=== PATIENT | female | born 1950 | race Caucasian/White ===

== ENCOUNTER 2023-02-21 12:08 | Emergency (ER) | payer MEDICARE, OTHER, SELFPAY ==
[2023-02-21] VITALS (30 sets, daily range): BP systolic 81–141; BP diastolic 46–83; PULSE 69–86; RESP 11–28; TEMP 36.1; O2SAT 93–100
--- NOTE | 2023-02-21 12:43 | ED.GENADULT ---
HPI - General Adult General Time Seen by Provider: 13:09 <Amarilis Ratliff MD - Last Filed: 02/21/23 16:47> Date Seen: 02/21/23 <Amarilis Ratliff MD - Last Filed: 02/21/23 16:47> Chief complaint: Nausea/Vomiting <Oleg Francois MD - Last Filed: 03/04/23 11:45> Stated complaint: Vomiting, diarrhea, R leg pain <Oleg Francois MD - Last Filed: 03/04/23 11:45> Time Seen by Provider: 02/21/23 12:41 <Oleg Francois MD - Last Filed: 03/04/23 11:45> Source: patient and RN notes reviewed <Amarilis Ratliff MD - Last Filed: 02/21/23 16:47> History of Present Illness HPI narrative: pt here with nausea, vomiting since this am after breakfast, has since developed chest pain and SOB, right leg pain 72-year-old woman presenting to the emergency department <Oleg Francois MD - Last Filed: 03/04/23 11:45> pt here with nausea, vomiting since this am after breakfast, has since developed chest pain and SOB, right leg pain 72-year-old woman presenting to the emergency department with her daughter with concern of nausea/vomiting with abdominal pain (?epigastric area) since eating breakfast this am. Also complaining of severe right leg pain, complains she hurts everywhere. C/o chest pain and shortness of breath after arrival. I was not signed up for this patient but nursing staff asked for immediate assistance and the physician whom was going to see her was busy. I did step in to see her emergently. Note nursing staff did not trust initial BP as patient was moving about, uncomfortable. No noted fevers. She states that she is seeing yellow right now. Review of her chart shows that she has had cholecystectomy, hysterectomy, appendectomy, prior tubal with ovary removal. <Amarilis Ratliff MD - Last Filed: 02/21/23 16:47> Related Data Home medications: Home Medications Medication Instructions Recorded Confirmed betamethasone dipropionate 0.05 % topical BID 02/21/23 topical ointment celecoxib 200 mg capsule 200 mg PO 3XD 02/21/23 02/21/23 cyclobenzaprine 10 mg tablet 10 mg PO QPM PRN muscle spasm 02/21/23 02/21/23 desvenlafaxine succinate 50 mg 50 mg PO DAILY 02/21/23 02/21/23 tablet,extended release 24 hr pantoprazole 40 mg tablet,delayed 40 mg PO DAILY 02/21/23 02/21/23 release topiramate 25 mg tablet 25 mg PO BID 02/21/23 02/21/23 trazodone 50 mg tablet 25 - 50 mg PO QPM 02/21/23 02/21/23 <Oleg Francois MD - Last Filed: 03/04/23 11:45> Allergies/adverse reactions: Allergies Allergy/AdvReac Type Severity Reaction Status Date / Time alfalfa Allergy Verified 02/21/23 12:53 bupropion [From Wellbutrin] Allergy Verified 02/21/23 12:53 citalopram [From Celexa] Allergy Verified 02/21/23 12:53 lamotrigine [From Lamictal] Allergy Verified 02/21/23 12:53 niacin Allergy Verified 02/21/23 12:53 paroxetine [From Paxil] Allergy Verified 02/21/23 12:53 <Oleg Francois MD - Last Filed: 03/04/23 11:45> [facility] Surgical History: Surgical History (Updated 01/01/22 @ 15:19 by Apple Murrieta ~ RN, RN) History of total left hip replacement ?Z96.642 - Presence of left artificial hip joint (ICD-10) <Oleg Francois MD - Last Filed: 03/04/23 11:45> Social History: Social History Smoking Status: Unknown if ever smoked How often do you have a drink containing alcohol: never How often do you have six or more drinks on one occasion: Never AUDIT-C Alcohol total score: 0 Non-prescribed substance use: denies use <Oleg Francois MD - Last Filed: 03/04/23 11:45> Exam Const: Vital Signs, click to edit/add: Vital Signs - 24 hr 02/21/23 12:41 02/21/23 12:59 02/21/23 13:22 Temperature 96.9 F L Pulse Rate 71 Pulse Rate [Right Pulse Oximeter] 76 Respiratory Rate 24 28 H Blood Pressure Blood Pressure [Ri ght Upper Arm] 81/50 L Pulse Oximetry 98 97 100 Oxygen Delivery Me thod Room Air 02/21/23 13:26 02/21/23 13:30 02/21/23 13:31 Temperature Pulse Rate 82 73 69 Pulse Rate [Right Pulse Oximeter] Respiratory Rate 23 27 H 23 Blood Pressure 141/67 H 135/56 L Blood Pressure [Ri ght Upper Arm] Pulse Oximetry 100 98 100 Oxygen Delivery Me thod 02/21/23 13:41 02/21/23 13:45 02/21/23 14:08 Temperature Pulse Rate 75 80 74 Pulse Rate [Right Pulse Oximeter] Respiratory Rate 20 14 Blood Pressure 134/74 Blood Pressure [Ri ght Upper Arm] Pulse Oximetry 98 100 98 Oxygen Delivery Me thod 02/21/23 14:09 02/21/23 14:10 02/21/23 14:12 Temperature Pulse Rate 80 80 82 Pulse Rate [Right Pulse Oximeter] Respiratory Rate 13 13 14 Blood Pressure 136/62 130/71 Blood Pressure [Ri ght Upper Arm] Pulse Oximetry 98 96 95 Oxygen Delivery Me thod 02/21/23 14:15 02/21/23 14:30 02/21/23 14:31 Temperature Pulse Rate 80 85 80 Pulse Rate [Right Pulse Oximeter] Respiratory Rate 11 L 16 13 Blood Pressure 133/64 Blood Pressure [Ri ght Upper Arm] Pulse Oximetry 95 98 96 Oxygen Delivery Me thod 02/21/23 14:32 02/21/23 14:45 02/21/23 15:00 Temperature Pulse Rate 82 86 82 Pulse Rate [Right Pulse Oximeter] Respiratory Rate 18 20 24 Blood Pressure Blood Pressure [Ri ght Upper Arm] Pulse Oximetry 96 96 93 Oxygen Delivery Me thod 02/21/23 15:01 02/21/23 15:15 Temperature Pulse Rate 83 81 Pulse Rate [Right Pulse Oximeter] Respiratory Rate 26 H 18 Blood Pressure 136/83 Blood Pressure [Ri ght Upper Arm] Pulse Oximetry 93 96 Oxygen Delivery Me thod <Oleg Francois MD - Last Filed: 03/04/23 11:45> Vital Signs, click to edit/add: Vital Signs - 24 hr 02/21/23 12:41 02/21/23 12:59 02/21/23 13:22 Temperature 96.9 F L Pulse Rate 71 Pulse Rate [Right Pulse Oximeter] 76 Respiratory Rate 24 28 H Blood Pressure Blood Pressure [Ri ght Upper Arm] 81/50 L Pulse Oximetry 98 97 100 Oxygen Delivery Me thod Room Air 02/21/23 13:26 02/21/23 13:30 02/21/23 13:31 Temperature Pulse Rate 82 73 69 Pulse Rate [Right Pulse Oximeter] Respiratory Rate 23 27 H 23 Blood Pressure 141/67 H 135/56 L Blood Pressure [Ri ght Upper Arm] Pulse Oximetry 100 98 100 Oxygen Delivery Me thod 02/21/23 13:41 02/21/23 13:45 02/21/23 14:08 Temperature Pulse Rate 75 80 74 Pulse Rate [Right Pulse Oximeter] Respiratory Rate 20 14 Blood Pressure 134/74 Blood Pressure [Ri ght Upper Arm] Pulse Oximetry 98 100 98 Oxygen Delivery Me thod 02/21/23 14:09 02/21/23 14:10 02/21/23 14:12 Temperature Pulse Rate 80 80 82 Pulse Rate [Right Pulse Oximeter] Respiratory Rate 13 13 14 Blood Pressure 136/62 130/71 Blood Pressure [Ri ght Upper Arm] Pulse Oximetry 98 96 95 Oxygen Delivery Me thod 02/21/23 14:15 02/21/23 14:30 02/21/23 14:31 Temperature Pulse Rate 80 85 80 Pulse Rate [Right Pulse Oximeter] Respiratory Rate 11 L 16 13 Blood Pressure 133/64 Blood Pressure [Ri ght Upper Arm] Pulse Oximetry 95 98 96 Oxygen Delivery Me thod 02/21/23 14:32 02/21/23 14:45 02/21/23 15:00 Temperature Pulse Rate 82 86 82 Pulse Rate [Right Pulse Oximeter] Respiratory Rate 18 20 24 Blood Pressure Blood Pressure [Ri ght Upper Arm] Pulse Oximetry 96 96 93 Oxygen Delivery Me thod 02/21/23 15:01 02/21/23 15:15 Temperature Pulse Rate 83 81 Pulse Rate [Right Pulse Oximeter] Respiratory Rate 26 H 18 Blood Pressure 136/83 Blood Pressure [Ri ght Upper Arm] Pulse Oximetry 93 96 Oxygen Delivery Me thod <Amarilis Ratliff MD - Last Filed: 02/21/23 16:47> Course Course Hospital Course: Patient was seen emergently at the request of staff. She was presenting with nausea vomiting, complaint of right leg pain and pain everywhere, progressed into symptoms of altered mentation where she was speaking gibberish and seeming like she was talking to someone. She would lapse and normal speech with me. Differential is vast including neurologic, cardiac, respiratory including but not limited to thromboembolic disease, metabolic, infectious, toxidromes. This patient will be watched quite closely, will work to try to elucidate potential etiologies. <Oleg Francois MD - Last Filed: 03/04/23 11:45> Reevaluation(s) Time of Reevaluation #1: 13:25 <Amarilis Ratliff MD - Last Filed: 02/21/23 16:47> Reevaluation #1: Staff paged code blue due to patient status change. She reportedly tensed up, seemed to be hallucinating. On my immediate arrival, she is alert but eyes closed, intermittently seems to be talking non-sensically, almost as if she is talking to someone there, she states that she cannot understand a word she is saying. Keeps saying that they need to go somewhere to her daughter. Eventually tells me to just make her sleep, she will be fine. BP 130-150's. Nursing staff had not given the morphine, will hold on this for the moment as she is seemingly altered. ?encephalopathic. Adding in toxicology, covid testing. May need head CT when stable to do so. Attempted to look at aorta with US, could not see any evidence of any gross dilated vascular structure but admittedly could not see into the retroperitoneal area well at all. Through this, patient is able to tell me that she is not aware of anyone with aneurysms in the family. <Amarilis Ratliff MD - Last Filed: 02/21/23 16:47> Time of Reevaluation #2: 13:44 <Amarilis Ratliff MD - Last Filed: 02/21/23 16:47> Reevaluation #2: Nursing staff feels that patient is stable enough mentally to proceed with imaging. She reports that her mom has had very atypical reactions to medications, including hallucinations. Will proceed with noncontrast head and abdominal imaging more emergently. Understand that we may need to proceed with looking at vascular imaging but feel this patient presentation is peculiar enough and perplexing that we need to proceed. Most labs not back yet. <Amarilis Ratliff MD - Last Filed: 02/21/23 16:47> Time of Reevaluation #3: 15:13 <Amarilis Ratliff MD - Last Filed: 02/21/23 16:47> Reevaluation #3: Patient seems like a completely different person, she states she feels better if she can throw up air. The abdominal pain is coming back a little bit. Reviewed that head CT noncontrast as well as abdominal CT are not showing any acute pathology. D-dimer is mildly elevated in thus will send her back over for chest CT PE protocol and subsequent abdomen with IV contrast. We unfortunately have issues with lipase not being able to be done here. Thus I do feel we really need to have an adequate look at her pancreas amongst other things. She did not ever get pain management here just the Zofran. She told me at this time that her younger sister from esophageal cancer last year. I did try to reassure her that I doubt that this would be a presentation of esophageal cancer. She and her notes that they have had no travel, no no definite ill contacts. They are outside a lot but she had not felt ill prior to today. <Amarilis Ratliff MD - Last Filed: 02/21/23 16:47> Additional Reevaluation(s): 1642 p.m. patient is feeling better. On further discussion with patient she thinks she may actually have Zofran or different antiemetic at home. She reports for years that she will have this episodically with significant nausea and vomiting. She denies any food that might be suspect for food poisoning. She had 2 cups of coffee this morning, would usually drink more. She had shredded wheat with 2% milk which she has had a couple times this week already without any problem. The only concerning abnormality is microscopic hematuria, she is aware we will be doing a urine culture but doubt infection. If this microscopic hematuria is still present on a follow-up urinalysis in clinic, would recommend consideration for urology referral for cystoscopy and further evaluation. I have no etiology for her nausea vomiting. If this continues to be problematic, consideration for Gastroenterology referral is recommended. She is had no concerning tachycardia hypertension or hyperthermia here. She has no ocular clonus, no muscular clonus no hyperreflexia. <Amarilis Ratliff MD - Last Filed: 02/21/23 16:47> Vital Signs Vital signs: Initial Vital Signs Temperature 96.9 F L 02/21/23 12:41 Temperature Source Temporal Artery Scan 02/21/23 12:41 Pulse Rate 76 02/21/23 12:41 Respiratory Rate 24 02/21/23 12:41 Blood Pressure 81/50 L 02/21/23 12:41 Blood Pressure Mean 60 L 02/21/23 12:41 Blood Pressure Position Sitting 02/21/23 12:41 Pulse Oximetry 98 02/21/23 12:41 Oxygen Delivery Method Room Air 02/21/23 12:41 Vital Signs Temperature 96.9 F L 02/21/23 12:41 Pulse Rate 76 02/21/23 12:41 Respiratory Rate 24 02/21/23 12:41 Blood Pressure 81/50 L 02/21/23 12:41 Pulse Oximetry 98 02/21/23 12:41 Oxygen Delivery Method Room Air 02/21/23 12:41 Temperature 96.9 F L 02/21/23 12:41 Pulse Rate 76 02/21/23 17:01 Respiratory Rate 18 02/21/23 16:01 Blood Pressure 108/46 L 02/21/23 17:01 Pulse Oximetry 93 02/21/23 17:01 Oxygen Delivery Method Room Air 02/21/23 12:41 <Oleg Francois MD - Last Filed: 03/04/23 11:45> Initial Vital Signs Temperature 96.9 F L 02/21/23 12:41 Temperature Source Temporal Artery Scan 02/21/23 12:41 Pulse Rate 76 02/21/23 12:41 Respiratory Rate 24 02/21/23 12:41 Blood Pressure 81/50 L 02/21/23 12:41 Blood Pressure Mean 60 L 02/21/23 12:41 Blood Pressure Position Sitting 02/21/23 12:41 Pulse Oximetry 98 02/21/23 12:41 Oxygen Delivery Method Room Air 02/21/23 12:41 Vital Signs Temperature 96.9 F L 02/21/23 12:41 Pulse Rate 76 02/21/23 12:41 Respiratory Rate 24 02/21/23 12:41 Blood Pressure 81/50 L 02/21/23 12:41 Pulse Oximetry 98 02/21/23 12:41 Oxygen Delivery Method Room Air 02/21/23 12:41 Temperature 96.9 F L 02/21/23 12:41 Pulse Rate 76 02/21/23 17:01 Respiratory Rate 18 02/21/23 16:01 Blood Pressure 108/46 L 02/21/23 17:01 Pulse Oximetry 93 02/21/23 17:01 Oxygen Delivery Method Room Air 02/21/23 12:41 <Amarilis Ratliff MD - Last Filed: 02/21/23 16:47> Medical Decision Making Lab Data Lab results reviewed: Yes I reviewed the patient's lab results <Amarilis Ratliff MD - Last Filed: 02/21/23 16:47> Labs: Lab Results 02/21/23 02/21/23 02/21/23 Range/Units 12:45 13:17 13:36 WBC 8.60 (4.50-11.00) K/uL RBC 5.11 (4.00-5.20) m/uL Hgb 14.6 (12.0-16.0) gm/dL Hct 44.5 (33.0-51.0) % MCV 87 (80-100) fL MCH 29 (26-34) pg MCHC 33 (32-36) gm/dL RDW Coeff of [place] 12.3 (11.5-15.5) % Plt Count 301 (140-440) K/uL Neut % (Auto) 85.0 H (42.0-72.0) % Lymph % (Auto) 6.5 L (20-44) % [place] % (Auto) 7.1 (0.0-11.0) % Eos % (Auto) 1.0 (0.0-7.0) % Baso % (Auto) 0.2 (0.0-3.0) % Neut # (Auto) 7.30 H (1.7-7.0) K/uL Lymph # (Auto) 0.60 L (0.90-2.90) K/uL [place] # (Auto) 0.60 (0.00-0.90) K/UL Eos # (Auto) 0.09 (0.00-0.50) K/uL Baso # (Auto) 0.02 (0.00-0.30) K/uL Abs Immat Gran (auto) 0.02 (0.00-0.30) K/uL Imm/Tot Granulo (auto) 0.2 % ESR 5 (2-20) mm/hr D-Dimer Quant (PE/DVT) 0.90 H (0.00-0.50) ug/ml VBG pH 7.463 H (7.32-7.43) VBG pCO2 33 L (40-50) mmHG VBG pO2 31.1 (25-47) mmHG VBG HCO3 24 (21-28) mmol/L Sodium 141 (135-149) mmol/L Potassium 3.9 (3.6-5.1) mmol/L Chloride 108 (96-114) mmol/L Carbon Dioxide 23 (20-32) mmol/L Anion Gap 10 (7-15) mEq/L BUN 25 (7-30) mg/dL Creatinine 0.9 (0.5-1.5) mg/dL Estimated GFR 68 ml/min Glucose 155 H (60-115) mg/dL Lactate 2.5 H (0.5-1.9) mmol/L Calcium 10.0 (8.4-10.6) mg/dL Total Bilirubin 0.6 (0.1-1.5) mg/dL Direct Bilirubin 0.1 (0.0-0.5) mg/dL AST 39 H (12-35) U/L ALT 39 H (4-35) U/L Alkaline Phosphatase 98 (40-150) U/L C-Reactive Protein 0.6 (0.5-1.0) mg/dL NT-Pro-B Natriuret Pep 192 pg/mL Total Protein 7.8 (6.0-8.3) g/dL Albumin 4.6 (3.3-5.0) g/dL Lipase 49 (23-300) U/L Procalcitonin 0.06 (<0.50) ng/mL Urine Color (Yellow) Urine Appearance (Clear) Urine pH (5.0-8.5) Ur Specific [place] (1.000-1.030) Urine Protein (Negative) Urine Glucose (UA) (Negative) Urine Ketones (Negative) Urine Blood (Negative) Urine Nitrite (Negative) Urine Bilirubin (Negative) Urine Urobilinogen (0.2-1.0) Ur Leukocyte Esterase (Negative) Urine RBC (0-2) Urine WBC (0-5) Ur Squamous Epith Cells (None-Few) Urine Bacteria (None) Urine Opiates Screen (Negative) Ur Oxycodone Screen (Negative) Urine Methadone Screen (Negative) Ur Propoxyphene Screen (Negative) Ur Barbiturates Screen (Negative) U Tricyclic Antidepress (Negative) Ur Phencyclidine Scrn (Negative) Ur Amphetamines Screen (Negative) U Methamphetamines Scrn (Negative) U Benzodiazepines Scrn (Negative) Urine Cocaine Screen (Negative) U Marijuana (THC) Screen (Negative) Ur Drug Screen Comment Ethyl Alcohol < 0.01 L (0.01-0.03) % SARS-CoV-2 (PCR) Negative SARS-CoV-2 (Negative) Influenza Type A (PCR) Negative PCR FLU A (Negative) Influenza Type B (PCR) Negative PCR FLU B (Negative) RSV (PCR) Negative PCR RSV (Negative) Lab Acknowledgement Test Added POC Troponin I 0.00 L (0.01-0.04) ng/ml 02/21/23 02/21/23 Range/Units 15:45 16:10 WBC (4.50-11.00) K/uL RBC (4.00-5.20) m/uL Hgb (12.0-16.0) gm/dL Hct (33.0-51.0) % MCV (80-100) fL MCH (26-34) pg MCHC (32-36) gm/dL RDW Coeff of [place] (11.5-15.5) % Plt Count (140-440) K/uL Neut % (Auto) (42.0-72.0) % Lymph % (Auto) (20-44) % [place] % (Auto) (0.0-11.0) % Eos % (Auto) (0.0-7.0) % Baso % (Auto) (0.0-3.0) % Neut # (Auto) (1.7-7.0) K/uL Lymph # (Auto) (0.90-2.90) K/uL [place] # (Auto) (0.00-0.90) K/UL Eos # (Auto) (0.00-0.50) K/uL Baso # (Auto) (0.00-0.30) K/uL Abs Immat Gran (auto) (0.00-0.30) K/uL Imm/Tot Granulo (auto) % ESR (2-20) mm/hr D-Dimer Quant (PE/DVT) (0.00-0.50) ug/ml VBG pH (7.32-7.43) VBG pCO2 (40-50) mmHG VBG pO2 (25-47) mmHG VBG HCO3 (21-28) mmol/L Sodium (135-149) mmol/L Potassium (3.6-5.1) mmol/L Chloride (96-114) mmol/L Carbon Dioxide (20-32) mmol/L Anion Gap (7-15) mEq/L BUN (7-30) mg/dL Creatinine (0.5-1.5) mg/dL Estimated GFR ml/min Glucose (60-115) mg/dL Lactate (0.5-1.9) mmol/L Calcium (8.4-10.6) mg/dL Total Bilirubin (0.1-1.5) mg/dL Direct Bilirubin (0.0-0.5) mg/dL AST (12-35) U/L ALT (4-35) U/L Alkaline Phosphatase (40-150) U/L C-Reactive Protein (0.5-1.0) mg/dL NT-Pro-B Natriuret Pep pg/mL Total Protein (6.0-8.3) g/dL Albumin (3.3-5.0) g/dL Lipase (23-300) U/L Procalcitonin (<0.50) ng/mL Urine Color Yellow (Yellow) Urine Appearance Clear (Clear) Urine pH 7.5 (5.0-8.5) Ur Specific [place] 1.015 (1.000-1.030) Urine Protein Negative (Negative) Urine Glucose (UA) Negative (Negative) Urine Ketones Negative (Negative) Urine Blood 1+ A (Negative) Urine Nitrite Negative (Negative) Urine Bilirubin Negative (Negative) Urine Urobilinogen 0.2 (0.2-1.0) Ur Leukocyte Esterase Negative (Negative) Urine RBC 10-25 A (0-2) Urine WBC 0-2 (0-5) Ur Squamous Epith Cells Few (None-Few) Urine Bacteria None (None) Urine Opiates Screen Negative (Negative) Ur Oxycodone Screen Negative (Negative) Urine Methadone Screen Negative (Negative) Ur Propoxyphene Screen Negative (Negative) Ur Barbiturates Screen Negative (Negative) U Tricyclic Antidepress Negative (Negative) Ur Phencyclidine Scrn Negative (Negative) Ur Amphetamines Screen Negative (Negative) U Methamphetamines Scrn Negative (Negative) U Benzodiazepines Scrn Negative (Negative) Urine Cocaine Screen Negative (Negative) U Marijuana (THC) Screen Negative (Negative) Ur Drug Screen Comment See Note Ethyl Alcohol (0.01-0.03) % SARS-CoV-2 (PCR) (Negative) Influenza Type A (PCR) (Negative) Influenza Type B (PCR) (Negative) RSV (PCR) (Negative) Lab Acknowledgement POC Troponin I 0.00 L (0.01-0.04) ng/ml <Olge Francois MD - Last Filed: 03/04/23 11:45> Lab Results 02/21/23 02/21/23 02/21/23 Range/Units 12:45 13:17 13:36 WBC 8.60 (4.50-11.00) K/uL RBC 5.11 (4.00-5.20) m/uL Hgb 14.6 (12.0-16.0) gm/dL Hct 44.5 (33.0-51.0) % MCV 87 (80-100) fL MCH 29 (26-34) pg MCHC 33 (32-36) gm/dL RDW Coeff of [place] 12.3 (11.5-15.5) % Plt Count 301 (140-440) K/uL Neut % (Auto) 85.0 H (42.0-72.0) % Lymph % (Auto) 6.5 L (20-44) % [place] % (Auto) 7.1 (0.0-11.0) % Eos % (Auto) 1.0 (0.0-7.0) % Baso % (Auto) 0.2 (0.0-3.0) % Neut # (Auto) 7.30 H (1.7-7.0) K/uL Lymph # (Auto) 0.60 L (0.90-2.90) K/uL [place] # (Auto) 0.60 (0.00-0.90) K/UL Eos # (Auto) 0.09 (0.00-0.50) K/uL Baso # (Auto) 0.02 (0.00-0.30) K/uL Abs Immat Gran (auto) 0.02 (0.00-0.30) K/uL Imm/Tot Granulo (auto) 0.2 % ESR 5 (2-20) mm/hr D-Dimer Quant (PE/DVT) 0.90 H (0.00-0.50) ug/ml VBG pH 7.463 H (7.32-7.43) VBG pCO2 33 L (40-50) mmHG VBG pO2 31.1 (25-47) mmHG VBG HCO3 24 (21-28) mmol/L Sodium 141 (135-149) mmol/L Potassium 3.9 (3.6-5.1) mmol/L Chloride 108 (96-114) mmol/L Carbon Dioxide 23 (20-32) mmol/L Anion Gap 10 (7-15) mEq/L BUN 25 (7-30) mg/dL Creatinine 0.9 (0.5-1.5) mg/dL Estimated GFR 68 ml/min Glucose 155 H (60-115) mg/dL Lactate 2.5 H (0.5-1.9) mmol/L Calcium 10.0 (8.4-10.6) mg/dL Total Bilirubin 0.6 (0.1-1.5) mg/dL Direct Bilirubin 0.1 (0.0-0.5) mg/dL AST 39 H (12-35) U/L ALT 39 H (4-35) U/L Alkaline Phosphatase 98 (40-150) U/L C-Reactive Protein 0.6 (0.5-1.0) mg/dL NT-Pro-B Natriuret Pep 192 pg/mL Total Protein 7.8 (6.0-8.3) g/dL Albumin 4.6 (3.3-5.0) g/dL Lipase 49 (23-300) U/L Procalcitonin 0.06 (<0.50) ng/mL Urine Color (Yellow) Urine Appearance (Clear) Urine pH (5.0-8.5) Ur Specific [place] (1.000-1.030) Urine Protein (Negative) Urine Glucose (UA) (Negative) Urine Ketones (Negative) Urine Blood (Negative) Urine Nitrite (Negative) Urine Bilirubin (Negative) Urine Urobilinogen (0.2-1.0) Ur Leukocyte Esterase (Negative) Urine RBC (0-2) Urine WBC (0-5) Ur Squamous Epith Cells (None-Few) Urine Bacteria (None) Urine Opiates Screen (Negative) Ur Oxycodone Screen (Negative) Urine Methadone Screen (Negative) Ur Propoxyphene Screen (Negative) Ur Barbiturates Screen (Negative) U Tricyclic Antidepress (Negative) Ur Phencyclidine Scrn (Negative) Ur Amphetamines Screen (Negative) U Methamphetamines Scrn (Negative) U Benzodiazepines Scrn (Negative) Urine Cocaine Screen (Negative) U Marijuana (THC) Screen (Negative) Ur Drug Screen Comment Ethyl Alcohol < 0.01 L (0.01-0.03) % SARS-CoV-2 (PCR) Negative SARS-CoV-2 (Negative) Influenza Type A (PCR) Negative PCR FLU A (Negative) Influenza Type B (PCR) Negative PCR FLU B (Negative) RSV (PCR) Negative PCR RSV (Negative) Lab Acknowledgement Test Added POC Troponin I 0.00 L (0.01-0.04) ng/ml 02/21/23 02/21/23 Range/Units 15:45 16:10 WBC (4.50-11.00) K/uL RBC (4.00-5.20) m/uL Hgb (12.0-16.0) gm/dL Hct (33.0-51.0) % MCV (80-100) fL MCH (26-34) pg MCHC (32-36) gm/dL RDW Coeff of [place] (11.5-15.5) % Plt Count (140-440) K/uL Neut % (Auto) (42.0-72.0) % Lymph % (Auto) (20-44) % [place] % (Auto) (0.0-11.0) % Eos % (Auto) (0.0-7.0) % Baso % (Auto) (0.0-3.0) % Neut # (Auto) (1.7-7.0) K/uL Lymph # (Auto) (0.90-2.90) K/uL [place] # (Auto) (0.00-0.90) K/UL Eos # (Auto) (0.00-0.50) K/uL Baso # (Auto) (0.00-0.30) K/uL Abs Immat Gran (auto) (0.00-0.30) K/uL Imm/Tot Granulo (auto) % ESR (2-20) mm/hr D-Dimer Quant (PE/DVT) (0.00-0.50) ug/ml VBG pH (7.32-7.43) VBG pCO2 (40-50) mmHG VBG pO2 (25-47) mmHG VBG HCO3 (21-28) mmol/L Sodium (135-149) mmol/L Potassium (3.6-5.1) mmol/L Chloride (96-114) mmol/L Carbon Dioxide (20-32) mmol/L Anion Gap (7-15) mEq/L BUN (7-30) mg/dL Creatinine (0.5-1.5) mg/dL Estimated GFR ml/min Glucose (60-115) mg/dL Lactate (0.5-1.9) mmol/L Calcium (8.4-10.6) mg/dL Total Bilirubin (0.1-1.5) mg/dL Direct Bilirubin (0.0-0.5) mg/dL AST (12-35) U/L ALT (4-35) U/L Alkaline Phosphatase (40-150) U/L C-Reactive Protein (0.5-1.0) mg/dL NT-Pro-B Natriuret Pep pg/mL Total Protein (6.0-8.3) g/dL Albumin (3.3-5.0) g/dL Lipase (23-300) U/L Procalcitonin (<0.50) ng/mL Urine Color Yellow (Yellow) Urine Appearance Clear (Clear) Urine pH 7.5 (5.0-8.5) Ur Specific [place] 1.015 (1.000-1.030) Urine Protein Negative (Negative) Urine Glucose (UA) Negative (Negative) Urine Ketones Negative (Negative) Urine Blood 1+ A (Negative) Urine Nitrite Negative (Negative) Urine Bilirubin Negative (Negative) Urine Urobilinogen 0.2 (0.2-1.0) Ur Leukocyte Esterase Negative (Negative) Urine RBC 10-25 A (0-2) Urine WBC 0-2 (0-5) Ur Squamous Epith Cells Few (None-Few) Urine Bacteria None (None) Urine Opiates Screen Negative (Negative) Ur Oxycodone Screen Negative (Negative) Urine Methadone Screen Negative (Negative) Ur Propoxyphene Screen Negative (Negative) Ur Barbiturates Screen Negative (Negative) U Tricyclic Antidepress Negative (Negative) Ur Phencyclidine Scrn Negative (Negative) Ur Amphetamines Screen Negative (Negative) U Methamphetamines Scrn Negative (Negative) U Benzodiazepines Scrn Negative (Negative) Urine Cocaine Screen Negative (Negative) U Marijuana (THC) Screen Negative (Negative) Ur Drug Screen Comment See Note Ethyl Alcohol (0.01-0.03) % SARS-CoV-2 (PCR) (Negative) Influenza Type A (PCR) (Negative) Influenza Type B (PCR) (Negative) RSV (PCR) (Negative) Lab Acknowledgement POC Troponin I 0.00 L (0.01-0.04) ng/ml <Amarilis Ratliff MD - Last Filed: 02/21/23 16:47> Imaging Data Chest x-ray: Attestation: I have reviewed the pertinent imaging results. <Amarilis Ratliff MD - Last Filed: 02/21/23 16:47> Radiologist's impression: Patient: SARAH CADENA Facility:?[facility] Patient ID:?[id number] Site Patient ID:?[id number]. Site :?1950 Study:?XRay Chest PORTABLE-02/21/2023 1:14:37 PM Ordering Physician:Jeff Olmos Final Report: INDICATION: CHEST PAIN TECHNIQUE: Chest 1 view. COMPARISON: 07/20/11 FINDINGS: Cardiovascular and mediastinum: Heart size and vasculature are normal in caliber and appearance. Mediastinum is within normal limits. Lungs and pleural space: Lungs are clear. No sign of infiltrate or mass. No sign of pleural effusion. No pneumothorax. Bones and soft tissues: No significant findings. IMPRESSION: Unremarkable chest. Dictated by: Oleg Sibley MD @ 02/21/2023 13:19:32 (Electronic Signature) <Amarilis Ratliff MD - Last Filed: 02/21/23 16:47> CT scan - head: Attestation: I have reviewed the pertinent imaging results. <Amarilis Ratliff MD - Last Filed: 02/21/23 16:47> Radiologist's impression: Patient: SARAH CADENA Facility:?[facility] Patient ID:?[id number] Site Patient ID:?[id number]. Site :?1950 Study:?CT Head W/O-02/21/2023 2:13:34 PM Ordering Physician:Jeff Olmos Final Report: Indication: Altered mental status Technique: Volumetric multidetector CT images of the head were obtained without the administration of low osmolar intravenous contrast. Comparison: None available Findings: There is no intra-axial or extra-axial fluid collection. There is no mass effect or midline shift. There is age-related cortical atrophy with mild sulcal widening and ex vacuo dilatation of the lateral ventricles. There are chronic small vessel disease changes in the subcortical and periventricular white matter without lost cook-white differentiation. The orbits and their contents are grossly within normal limits. The bony calvarium is grossly intact. There is trace mucosal thickening within the ethmoid air cells. The mastoid air cells are well aerated. Impression: Age-related and chronic small-vessel disease changes without acute intracranial abnormality. Please note that all CT scans at this facility use dose modulation, iterative reconstruction, and/or weight-based dosing when appropriate to reduce radiation dose to as low as reasonably achievable. Dictated by David Candelario MD @ 02/21/2023 2:42:09 PM (Electronic Signature) <Amarilis Ratliff MD - Last Filed: 02/21/23 16:47> CT scan - abdomen: Attestation: I have reviewed the pertinent imaging results. <Amarilis Ratliff MD - Last Filed: 02/21/23 16:47> Radiologist's impression: Patient: SARAH CADENA Facility:?[facility] Patient ID:?[id number] Site Patient ID:?[id number]. Site :?1950 Study:?CT Abdomen/Pelvis W/O-02/21/2023 2:15:08 PM Ordering Physician:Jeff Olmos Final Report: INDICATION: Altered mental status, vomiting, diarrhea, right leg pain. TECHNIQUE: CT abdomen and pelvis without contrast. COMPARISON: None. FINDINGS: Lower chest: Scattered atelectasis. Tiny hiatal hernia. Liver: Hepatic steatosis. No suspicious masses. Gallbladder and bile ducts: Cholecystectomy. Pancreas: Unremarkable. No mass or inflammation. Spleen: Normal in size. No masses. Adrenal glands: Normal in size. No nodules. Kidneys: Normal in size. No suspicious masses, stones, or hydronephrosis. GI tract: Colonic diverticulosis. Normal in caliber. No sign of mass or inflammation. Appendix not definitely seen. Vasculature: Moderate aorto iliac arterial calcifications. Abdominal aorta is normal in caliber. Lymph nodes: No lymphadenopathy. Peritoneum/Abdominal Wall: Tiny fat containing umbilical hernia. No sign of mass or infiltration. No free air or significant free fluid. Pelvis: Hysterectomy. No pelvic masses. Bones: Left hip arthroplasty causing streak artifact. IMPRESSION: No acute intra-abdominal/pelvic abnormality. Colonic diverticulosis without diverticulitis. Mild hepatic steatosis. Please note that all CT scans at this facility use dose modulation, iterative reconstruction, and/or weight-based dosing when appropriate to reduce radiation dose to as low as reasonably achievable. Dictated by Luis Negron MD @ 02/21/2023 2:47:40 PM (Electronic Signature) <Amarilis Ratliff MD - Last Filed: 02/21/23 16:47> CT scan - chest: Attestation: I have reviewed the pertinent imaging results. <Amarilis Ratliff MD - Last Filed: 02/21/23 16:47> Radiologist's impression: Patient: SARAH CADENA Facility:?[facility] Patient ID:?[id number] Site Patient ID:?[id number]. Site :?1950 Study:?CT Chest Angio w/ 95cc isovue-370 PE Protocol-02/21/2023 3:30:54 PM Ordering Physician:Jeff Olmos Final Report: INDICATION: Elevated D-dimer, altered mental status. TECHNIQUE: CT chest PE was acquired with 95 cc Isovue 370 IV contrast. COMPARISON: None. FINDINGS: Heart and vasculature: Contrast opacification of the pulmonary arterial tree is adequate to the level of the distal segmental pulmonary arteries. No sign of pulmonary embolism. Heart size is normal. Thoracic aorta and pulmonary artery are normal in caliber. Lungs and pleura: No suspicious nodules or infiltrates. No pleural effusions, pleural thickening, or pneumothorax. Lymph nodes/mediastinum: No mediastinal, hilar, or axillary adenopathy. Chest wall: No masses. Upper abdomen: Please refer to same-day CT abdomen/pelvis for further evaluation. Bones: Unremarkable for age. IMPRESSION: No pulmonary embolism to the level of the distal segmental pulmonary arteries.. No focal consolidations. Please note that all CT scans at this facility use dose modulation, iterative reconstruction, and/or weight-based dosing when appropriate to reduce radiation dose to as low as reasonably achievable. Dictated by Luis Negron MD @ 02/21/2023 3:47:26 PM (Electronic Signature) <Amarilis Ratliff MD - Last Filed: 02/21/23 16:47> CT- Other: Attestation: I have reviewed the pertinent imaging results. <Amarilis Ratliff MD - Last Filed: 02/21/23 16:47> Radiologist's impression: Patient: SARAH CADENA Facility:?[facility] Patient ID:?[id number] Site Patient ID:?[id number]. Site :?1950 Study:?CT Abdomen/Pelvis w/ 95cc [id number]/25/2023 3:31:31 PM Ordering Physician:Jeff Olmos Final Report: INDICATION: Nausea, vomiting and epigastric pain. TECHNIQUE: CT abdomen and pelvis acquired with 95 cc Isovue 370 IV contrast. COMPARISON: 02/21/2023 at 2:11 p.m.. FINDINGS: Lower chest: Unremarkable. Liver: Hepatic steatosis. Gallbladder and bile ducts: Cholecystectomy. Pancreas: Unremarkable. No mass or inflammation. Spleen: Unremarkable. Normal in size. No masses. Adrenal glands: Unremarkable. No nodules. Kidneys: Unremarkable. No suspicious masses, stones, or hydronephrosis. GI tract: Nondilated bowel. Sigmoid diverticulosis without acute inflammatory changes. The appendix is not seen and is presumed to be surgically absent. Please correlate with the patient`s history. No imaging findings to indicate acute appendicitis. Vasculature: Moderate diffuse aortoiliac atherosclerotic mural calcification. No abdominal aortic aneurysm. Mesenteric arteries are patent. Lymph nodes: No lymphadenopathy. Peritoneum/Abdominal Wall: Small fat containing periumbilical hernia. Pelvis: Unremarkable. Bones: Unremarkable for age. Left hip arthroplasty. IMPRESSION: There are no specific imaging findings to explain the clinical history. Clinical re-evaluation is suggested. Consider follow-up imaging as clinically indicated. Please note that all CT scans at this facility use dose modulation, iterative reconstruction, and/or weight-based dosing when appropriate to reduce radiation dose to as low as reasonably achievable. Dictated by Alan Ruiz MD @ 02/21/2023 3:57:05 PM (Electronic Signature) <Amarilis Ratliff MD - Last Filed: 02/21/23 16:47> ECG Data Attestation: I personally reviewed and interpreted this ECG as follows: (Sinus rhythm, 78 beats per minute. No ischemic change. QT corrected 426 milliseconds.) <Amarilis Ratliff MD - Last Filed: 02/21/23 16:47> Discharge Plan Discharge Clinical Impression: Acute alteration in mental status, Acute nausea with nonbilious vomiting, Asymptomatic microscopic hematuria <Oleg Francois MD - Last Filed: 03/04/23 11:45> Patient Disposition: Home, Self-Care <Oleg Francois MD - Last Filed: 03/04/23 11:45> Condition: Stable <Oleg Francois MD - Last Filed: 03/04/23 11:45> Instructions: Acute Nausea and Vomiting (ED) <Oleg Francois MD - Last Filed: 03/04/23 11:45> Additional Instructions: Recommend follow-up with your primary care provider within the next week. Repeat urinalysis at some point should be done and if there continues to be asymptomatic microscopic hematuria, referral to Urology should be considered. Likewise, if you continue to have severe episodic nausea vomiting, gastroenterology referral could be considered. Can resume your normal diet as you feel able to. Certainly recommend frequent sips of clear liquids until you are feeling better to help avoid dehydration. Can use the anti nausea medicine that you have at home for any ongoing nausea or vomiting. <Oleg Francois MD - Last Filed: 03/04/23 11:45> Activity Level: Activity as Tolerated <Oleg Francois MD - Last Filed: 03/04/23 11:45> Activity as Tolerated <Amarilis Ratliff MD - Last Filed: 02/21/23 16:47> Prescriptions: No Action celecoxib 200 mg capsule 200 mg PO 3XD cyclobenzaprine 10 mg tablet 10 mg PO QPM PRN (Reason: muscle spasm) trazodone 50 mg tablet 25 - 50 mg PO QPM topiramate 25 mg tablet 25 mg PO BID pantoprazole 40 mg tablet,delayed release (DR/EC) 40 mg PO DAILY betamethasone dipropionate 0.05 % ointment topical BID desvenlafaxine succinate 50 mg tablet extended release 24 hr 50 mg PO DAILY <Oelg Francois MD - Last Filed: 03/04/23 11:45> Follow Up/Referrals: Dinorah Quiroga DO [Primary Care Provider] - <Oleg Francois MD - Last Filed: 03/04/23 11:45> Stand Alone Forms: [place] [employer] Info Instructions <Olge Francois MD - Last Filed: 03/04/23 11:45>
--- NOTE | 2023-02-21 12:59 | CRLHL7_ITS ---
For Patients: As a result of the Century Cures Act, medical imaging exams and procedure reports are released immediately into your electronic medical record. You may view this report before your referring provider. If you have questions, please contact your health care provider. INDICATION: CHEST PAIN TECHNIQUE: Chest 1 view. COMPARISON: 07/20/11 FINDINGS: Cardiovascular and mediastinum: Heart size and vasculature are normal in caliber and appearance. Mediastinum is within normal limits. Lungs and pleural space: Lungs are clear. No sign of infiltrate or mass. No sign of pleural effusion. No pneumothorax. Bones and soft tissues: No significant findings. IMPRESSION: Unremarkable chest. Dictated by: Oleg Sibley MD @ 02/21/2023 13:19:32 (Electronically Signed)
[2023-02-21] MEDS: 0.9 % SODIUM CHLORIDE 250 ml 250 ML IV (13:00)
[2023-02-21] MEDS: ONDANSETRON 2 MG/ML inj 8 MG IVP (13:00)
--- NOTE | 2023-02-21 13:10 | ED.NURSE ---
Pt exhibits sudden onset of screaming and shaking, not acknowledging verbal prompts from staff. Code Blue activated.
[2023-02-21 13:14] LABS: HCO3 VBG 24 mmol/L (21-28); Lactate* 2.5 mmol/L (0.5-1.9); PCO2 VBG 33 mmHG (40-50); PO2 VBG 31.1 mmHG (25-47); pH VBG 7.463 (7.32-7.43)
--- NOTE | 2023-02-21 13:15 | ED.NURSE ---
Seizure pads applied to bed.
--- NOTE | 2023-02-21 13:19 | ED.NURSE ---
Pt having multiple episodes of suddenly tensing up and screaming, thrashing around in bed. MD in room to examine pt. Pt screaming out things like You've got me! I've got the devil in me! I've got to go somewhere. Pt is oriented to place and situation when asked, but continues periodically having these episodes of screaming out and thrashing around.
[2023-02-21 13:21] LABS: Albumin* 4.6 g/dL (3.3-5.0); Chloride* 108 mmol/L (96-114); Sodium* 141 mmol/L (135-149)
[2023-02-21 13:22] LABS: Potassium* 3.9 mmol/L (3.6-5.1)
[2023-02-21 13:23] LABS: Basophils Absolute Auto 0.02 K/uL (0.00-0.30); Basophils Percent Auto 0.2 % (0.0-3.0); Eosinophils Absolute Auto 0.09 K/uL (0.00-0.50); Hematocrit 44.5 % (33.0-51.0); Hemoglobin* 14.6 gm/dL (12.0-16.0); Immature Granulocytes Abs Auto 0.02 K/uL (0.00-0.30); Immature Granulocytes Pct Auto 0.2 %; Lymphocytes Percent Auto 6.5 % (20-44); Mean Corpuscular HGB Conc 33 gm/dL (32-36); Mean Corpuscular Hemoglobin 29 pg (26-34); Mean Corpuscular Volume 87 fL (80-100); Monocytes Percent Auto 7.1 % (0.0-11.0); Platelet Count* 301 K/uL (140-440); RDW Coefficient of Variation % 12.3 % (11.5-15.5); Red Blood Count 5.11 m/uL (4.00-5.20)
[2023-02-21 13:24] LABS: Anion Gap 10 mEq/L (7-15); Aspartate Amino Transferase* 39 U/L (12-35); Bilirubin Direct* 0.1 mg/dL (0.0-0.5); Bilirubin Total* 0.6 mg/dL (0.1-1.5); Carbon Dioxide* 23 mmol/L (20-32); Creatinine* 0.9 mg/dL (0.5-1.5); Estimated Glomerular Filt Rate 68 ml/min; Total Protein* 7.8 g/dL (6.0-8.3)
[2023-02-21 13:25] LABS: Alanine Aminotransferase* 39 U/L (4-35); Alkaline Phosphatase* 98 U/L (40-150); Blood Urea Nitrogen* 25 mg/dL (7-30); Glucose* 155 mg/dL (60-115)
[2023-02-21 13:27] LABS: C Reactive Protein* 0.6 mg/dL (0.5-1.0)
--- NOTE | 2023-02-21 13:27 | ED.NURSE ---
Pt is continuing to make strange statements, speaking in gibberish, states I've gotta go, I've gotta go. Pt redirectable with verbal prompts at this time. Security and pt's daughter present at bedside with senior technical writer to assist in redirecting pt.
[2023-02-21 13:40] LABS: Slide Review Reflex No
[2023-02-21 13:41] LABS: Procalcitonin* 0.06 ng/mL (<0.50)
--- NOTE | 2023-02-21 13:41 | CRLHL7_ITS ---
For Patients: As a result of the Century Cures Act, medical imaging exams and procedure reports are released immediately into your electronic medical record. You may view this report before your referring provider. If you have questions, please contact your health care provider. Indication: Altered mental status Technique: Volumetric multidetector CT images of the head were obtained without the administration of low osmolar intravenous contrast. Comparison: None available Findings: There is no intra-axial or extra-axial fluid collection. There is no mass effect or midline shift. There is age-related cortical atrophy with mild sulcal widening and ex vacuo dilatation of the lateral ventricles. There are chronic small vessel disease changes in the subcortical and periventricular white matter without lost cook-white differentiation. The orbits and their contents are grossly within normal limits. The bony calvarium is grossly intact. There is trace mucosal thickening within the ethmoid air cells. The mastoid air cells are well aerated. Impression: Age-related and chronic small-vessel disease changes without acute intracranial abnormality. Please note that all CT scans at this facility use dose modulation, iterative reconstruction, and/or weight-based dosing when appropriate to reduce radiation dose to as low as reasonably achievable. Dictated by David Candelario MD @ 02/21/2023 2:42:09 PM (Electronically Signed)
--- NOTE | 2023-02-21 13:42 | CRLHL7_ITS ---
For Patients: As a result of the Century Cures Act, medical imaging exams and procedure reports are released immediately into your electronic medical record. You may view this report before your referring provider. If you have questions, please contact your health care provider. INDICATION: Altered mental status, vomiting, diarrhea, right leg pain. TECHNIQUE: CT abdomen and pelvis without contrast. COMPARISON: None. FINDINGS: Lower chest: Scattered atelectasis. Tiny hiatal hernia. Liver: Hepatic steatosis. No suspicious masses. Gallbladder and bile ducts: Cholecystectomy. Pancreas: Unremarkable. No mass or inflammation. Spleen: Normal in size. No masses. Adrenal glands: Normal in size. No nodules. Kidneys: Normal in size. No suspicious masses, stones, or hydronephrosis. GI tract: Colonic diverticulosis. Normal in caliber. No sign of mass or inflammation. Appendix not definitely seen. Vasculature: Moderate aorto iliac arterial calcifications. Abdominal aorta is normal in caliber. Lymph nodes: No lymphadenopathy. Peritoneum/Abdominal Wall: Tiny fat containing umbilical hernia. No sign of mass or infiltration. No free air or significant free fluid. Pelvis: Hysterectomy. No pelvic masses. Bones: Left hip arthroplasty causing streak artifact. IMPRESSION: No acute intra-abdominal/pelvic abnormality. Colonic diverticulosis without diverticulitis. Mild hepatic steatosis. Please note that all CT scans at this facility use dose modulation, iterative reconstruction, and/or weight-based dosing when appropriate to reduce radiation dose to as low as reasonably achievable. Dictated by Luis Negron MD @ 02/21/2023 2:47:40 PM (Electronically Signed)
--- NOTE | 2023-02-21 13:45 | ED.NURSE ---
Pt appears more oriented now, is able to converse calmly with the software writer. No longer having episodes of screaming out. Is oriented to self, place, situation, month. Pt assisted onto commode. notified.
[2023-02-21 13:47] LABS: NT Pro B Type NatriureticPept* 192 pg/mL
[2023-02-21 14:01] LABS: Ethanol* < 0.01 % (0.01-0.03)
[2023-02-21 14:07] LABS: PCR FLU A Negative PCR FLU A (Negative); PCR FLU B Negative PCR FLU B (Negative); PCR RSV Negative PCR RSV (Negative)
[2023-02-21 14:10] LABS: SARS PCR* Negative SARS-CoV-2 (Negative)
[2023-02-21 14:18] LABS: Erythrocyte SedimentationRate* 5 mm/hr (2-20)
--- NOTE | 2023-02-21 15:07 | CRLHL7_ITS ---
For Patients: As a result of the Century Cures Act, medical imaging exams and procedure reports are released immediately into your electronic medical record. You may view this report before your referring provider. If you have questions, please contact your health care provider. INDICATION: Elevated D-dimer, altered mental status. TECHNIQUE: CT chest PE was acquired with 95 cc Isovue 370 IV contrast. COMPARISON: None. FINDINGS: Heart and vasculature: Contrast opacification of the pulmonary arterial tree is adequate to the level of the distal segmental pulmonary arteries. No sign of pulmonary embolism. Heart size is normal. Thoracic aorta and pulmonary artery are normal in caliber. Lungs and pleura: No suspicious nodules or infiltrates. No pleural effusions, pleural thickening, or pneumothorax. Lymph nodes/mediastinum: No mediastinal, hilar, or axillary adenopathy. Chest wall: No masses. Upper abdomen: Please refer to same-day CT abdomen/pelvis for further evaluation. Bones: Unremarkable for age. IMPRESSION: No pulmonary embolism to the level of the distal segmental pulmonary arteries.. No focal consolidations. Please note that all CT scans at this facility use dose modulation, iterative reconstruction, and/or weight-based dosing when appropriate to reduce radiation dose to as low as reasonably achievable. Dictated by Luis Negron MD @ 02/21/2023 3:47:26 PM (Electronically Signed)
--- NOTE | 2023-02-21 15:08 | CRLHL7_ITS ---
For Patients: As a result of the Century Cures Act, medical imaging exams and procedure reports are released immediately into your electronic medical record. You may view this report before your referring provider. If you have questions, please contact your health care provider. INDICATION: Nausea, vomiting and epigastric pain. TECHNIQUE: CT abdomen and pelvis acquired with 95 cc Isovue 370 IV contrast. COMPARISON: 02/21/2023 at 2:11 p.m.. FINDINGS: Lower chest: Unremarkable. Liver: Hepatic steatosis. Gallbladder and bile ducts: Cholecystectomy. Pancreas: Unremarkable. No mass or inflammation. Spleen: Unremarkable. Normal in size. No masses. Adrenal glands: Unremarkable. No nodules. Kidneys: Unremarkable. No suspicious masses, stones, or hydronephrosis. GI tract: Nondilated bowel. Sigmoid diverticulosis without acute inflammatory changes. The appendix is not seen and is presumed to be surgically absent. Please correlate with the patient`s history. No imaging findings to indicate acute appendicitis. Vasculature: Moderate diffuse aortoiliac atherosclerotic mural calcification. No abdominal aortic aneurysm. Mesenteric arteries are patent. Lymph nodes: No lymphadenopathy. Peritoneum/Abdominal Wall: Small fat containing periumbilical hernia. Pelvis: Unremarkable. Bones: Unremarkable for age. Left hip arthroplasty. IMPRESSION: There are no specific imaging findings to explain the clinical history. Clinical re-evaluation is suggested. Consider follow-up imaging as clinically indicated. Please note that all CT scans at this facility use dose modulation, iterative reconstruction, and/or weight-based dosing when appropriate to reduce radiation dose to as low as reasonably achievable. Dictated by Alan Ruiz MD @ 02/21/2023 3:57:05 PM (Electronically Signed)
--- NOTE | 2023-02-21 15:34 | ED.NURSE ---
Pt appears resting comfortably in bed. Pt reports abd pain is significantly improved at this time.
[2023-02-21 16:22] LABS: Appearance Urine Clear (Clear); Bilirubin Urine Negative (Negative); Blood Urine 1+ (Negative); Color Urine Yellow (Yellow); Glucose Urine Negative (Negative); Ketones Urine Negative (Negative); Leukocyte Esterase Urine Negative (Negative); Nitrite Urine Negative (Negative); Protein Urine Negative (Negative); Specific Gravity Urine 1.015 (1.000-1.030); Urobilinogen Urine 0.2 (0.2-1.0); pH Urine 7.5 (5.0-8.5)
[2023-02-21 16:28] LABS: Amphetamine Screen Urine Negative (Negative); Barbiturate Screen Urine Negative (Negative); Benzodiazepines Screen Urine Negative (Negative); Cannabinoid Screen Urine Negative (Negative); Cocaine Screen Urine Negative (Negative); Methadone Screen Urine Negative (Negative); Methamphetamines Screen Urine Negative (Negative); Opiate Screen Urine Negative (Negative); Oxycodone Screen Urine Negative (Negative); Phencyclidine Screen Urine Negative (Negative); Tricyclic Antidepressant Urine Negative (Negative)
[2023-02-21 16:33] LABS: Squamous Epithelial Cell Urine Few (None-Few); WBC Urine 0-2 (0-5)
[2023-02-21 18:53] LABS: Lipase* 49 U/L (23-300)
== END 2023-02-21 17:19 | disposition home or self-care (01) ==
PROVIDERS: Family Medicine; Emergency Provider Family Medicine; PCP Family Medicine
DX: R31.21 Asymptomatic microscopic hematuria (principal); R11.2 Nausea with vomiting, unspecified; R41.82 Altered mental status, unspecified
CPT/HCPCS: 36415; 70450; 71045; 71275; 74176; 74177; 80053; 80306; 81001; 82077; 82248; 82803; 83605; 83690; 83880; 84145; 84484; 85025; 85379; 85651; 86140; 87040; 87631; 87635; 93005; 94761; 99284; 99291; J2405; J7050; Q9967

== ENCOUNTER 2023-12-02 09:03 | Emergency (ER) | payer MEDICARE, OTHER, SELFPAY ==
[2023-12-02] VITALS (15 sets, daily range): BP systolic 121–182; BP diastolic 59–96; PULSE 54–68; RESP 18; TEMP 36.1; O2SAT 95–99; BMI 32.8
--- NOTE | 2023-12-02 09:14 | ED.GENADULT ---
HPI - General Adult General Chief complaint: Headache/Migraine Stated complaint: jaw pain,headache,dizzy Time Seen by Provider: 12/02/23 09:14 History of Present Illness HPI narrative: Patient reports waking up and feeling fine this AM. She was at [facility] when she began to have severe headache and jaw pain as well as diaphoretic. She has had several similar episodes with jaw pain that then go into a headache in the past few weeks . 73-year-old woman presenting to the emergency department with concern of headache and dizziness later clarified more to lightheadedness. She was feeling well this morning. Went to [facility] and during that time started to experience jaw pain and severe headache. Subsequently went to a chiropractor. She was rather diaphoretic at that point. Blood pressure was elevated at 160s systolic I believe. Is not experiencing chest pain or shortness of breath. Recommended by chiropractors of present to the emergency department to be evaluated. Over the last few weeks has had some episodes of jaw pain as she demonstrates bilaterally that escalated into a headache. The seem to spontaneous resolve. Have been occurring just when she is at home she says. Little bit vague about details on initial interview was seems to be just not feeling very well. Has not had a fever or the cough or cold symptoms. Does not typically get headaches. Does not typically have neck problems other than noting it tension and soreness in upper back lower neck on exam. Does not have known cardiovascular disease she says but notes that ?they tell me if I do not get my cholesterol under control I'm going to have a stroke?. This morning she does admit was rather warm and humid out. She feels like she has cooling down at this point. Related Data Home Medications ?Medication ?Instructions ?Recorded ?Confirmed betamethasone dipropionate 0.05 % topical BID 02/21/23 topical ointment celecoxib 200 mg capsule 200 mg PO 3XD 02/21/23 02/21/23 cyclobenzaprine 10 mg tablet 10 mg PO QPM PRN muscle spasm 02/21/23 02/21/23 desvenlafaxine succinate 50 mg 50 mg PO DAILY 02/21/23 02/21/23 tablet,extended release 24 hr pantoprazole 40 mg tablet,delayed 40 mg PO DAILY 02/21/23 02/21/23 release topiramate 25 mg tablet 25 mg PO BID 02/21/23 02/21/23 trazodone 50 mg tablet 25 - 50 mg PO QPM 02/21/23 02/21/23 Allergies Allergy/AdvReac Type Severity Reaction Status Date / Time alfalfa Allergy Verified 02/21/23 12:53 bupropion [From Wellbutrin] Allergy Verified 02/21/23 12:53 citalopram [From Celexa] Allergy Verified 02/21/23 12:53 lamotrigine [From Lamictal] Allergy Verified 02/21/23 12:53 niacin Allergy Verified 02/21/23 12:53 paroxetine [From Paxil] Allergy Verified 02/21/23 12:53 Review of Systems Status of ROS: Reports: 6 or more systems reviewed and unremarkable except as noted in History and below [facility] Surgical History History of total left hip replacement ?Z96.642 - Presence of left artificial hip joint (ICD-10) Social History Smoking Status: Unknown if ever smoked How often do you have a drink containing alcohol: never How often do you have six or more drinks on one occasion: Never AUDIT-C Alcohol total score: 0 Non-prescribed substance use: denies use Exam Narrative: Exam Narrative: Pleasant. Seems little distracted her does not feeling well. Fluidly labored in her breathing. Head is atraumatic. Pupils are will of to middle meters and equal and appropriately reactive. Head is atraumatic. Cranial nerves 2-12 are intact. She is sore to palpation in the low dana cervical musculature into the trapezius bilaterally. Not able to reproduce any jaw pain to palpation or including palpation of the TMJ area. Neck is supple. Heart with regular rate and rhythm. No murmur rub or gallop identified. Lungs are clear. Abdomen is soft. Little sore in the lower epigastrium which apparently is somewhat chronic she says after 2 gallbladder surgeries. Lower extremities are without edema. She is generally well perfused. When I do go to set her up to listen to her lungs though she becomes increasingly lightheaded. Pupils dilated symmetrically. She notes that she was seeing some spots. She laid back down and this lightheadedness slowly resolves. Needed some prompting to attend to conversation. Const: Vital Signs, click to edit/add: Vital Signs - 24 hr 12/02/23 09:07 12/02/23 09:21 12/02/23 09:22 Temperature 97 F L Pulse Rate 62 67 Pulse Rate [Pulse Oximeter] 63 Respiratory Rate 18 Blood Pressure 174/84 H Blood Pressure [Ri ght Upper Arm] 182/96 H Pulse Oximetry 99 98 98 Oxygen Delivery Me thod Room Air 12/02/23 09:26 12/02/23 09:35 12/02/23 09:45 Temperature Pulse Rate 61 68 Pulse Rate [Pulse Oximeter] Respiratory Rate Blood Pressure Blood Pressure [Ri ght Upper Arm] Pulse Oximetry 97 99 98 Oxygen Delivery Me thod 12/02/23 09:58 12/02/23 10:00 12/02/23 10:15 Temperature Pulse Rate 58 L 62 61 Pulse Rate [Pulse Oximeter] Respiratory Rate Blood Pressure 121/77 Blood Pressure [Ri ght Upper Arm] Pulse Oximetry 99 97 99 Oxygen Delivery Me thod 12/02/23 10:35 12/02/23 10:36 Temperature Pulse Rate 55 L 54 L Pulse Rate [Pulse Oximeter] Respiratory Rate Blood Pressure 134/59 L Blood Pressure [Ri ght Upper Arm] Pulse Oximetry 97 96 Oxygen Delivery Me thod Documenting provider has reviewed patient's vital signs: yes Course Vital Signs Vital signs: Initial Vital Signs Temperature 97 F L 12/02/23 09:07 Temperature Source Temporal Artery Scan 12/02/23 09:07 Pulse Rate 63 12/02/23 09:07 Respiratory Rate 18 12/02/23 09:07 Blood Pressure 182/96 H 12/02/23 09:07 Blood Pressure Mean 124 H 12/02/23 09:07 Pulse Oximetry 99 12/02/23 09:07 Oxygen Delivery Method Room Air 12/02/23 09:07 Vital Signs Temperature 97 F L 12/02/23 09:07 Pulse Rate 63 12/02/23 09:07 Respiratory Rate 18 12/02/23 09:07 Blood Pressure 182/96 H 12/02/23 09:07 Pulse Oximetry 99 12/02/23 09:07 Oxygen Delivery Method Room Air 12/02/23 09:07 Temperature 97 F L 12/02/23 09:07 Pulse Rate 55 L 12/02/23 11:15 Respiratory Rate 18 12/02/23 09:07 Blood Pressure 134/59 L 12/02/23 10:36 Pulse Oximetry 97 12/02/23 11:15 Oxygen Delivery Method Room Air 12/02/23 09:07 Medications Administered Medications: Discontinued Medications Generic Name Dose Route Start Last Admin Trade Name Carlos Eduardo PRN Reason Stop Dose Admin Sodium Chloride 1,000 mls @ 1,000 mls/hr 12/02/23 09:26 12/02/23 10:36 0.9 % Sodium Chloride 1000 Ml IV 12/02/23 10:25 Infused .Q1H ONE Infusion Ketorolac Tromethamine 15 mg 12/02/23 10:27 12/02/23 10:35 Ketorolac 15 Mg/Ml Inj IVP 12/02/23 10:28 15 mg ONCE ONE Administration Ondansetron HCl 4 mg 12/02/23 10:27 12/02/23 10:37 Ondansetron 2 Mg/Ml Inj IVP 12/02/23 10:28 4 mg ONCE ONE Administration Medical Decision Making [facility] Narrative Medical decision making narrative: EKG is available when I go in to the room. She is in a sinus rhythm. Normal axis. I do not see any ischemic changes. Rate of 61. Certainly this could jaw pain without other explanation is concerning. This may be anginal equivalent. Evaluate for ischemic cardiovascular event. I will scan her head though as well given intensity of her headache acute for potential bleed. Does not seem to have stroke symptoms otherwise. Without localizing symptoms. Could be simply orthostatic and environmentally stressed concerning whether today. Will also hydrate with normal saline. Monitor on compliance monitor. Serial troponins. 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 Ordered for IV fluids ketorolac and Zofran Over time in the emergency department is improved. Labs are reassuring. CT scan reviewed by me shows some mild sinus disease. No acute intracranial anomaly. See radiology over-read as below TECHNIQUE: CT of the head was performed without IV contrast. COMPARISON: None. FINDINGS: Parenchyma: No acute hemorrhage, infarction, or mass. Mild scattered periventricular white matter hypoattenuation is nonspecific and is favored to represent chronic small vessel ischemic disease. Ventricles and extra-axial spaces: Appropriate for age. Visualized paranasal sinuses: Moderate mucosal thickening of the bilateral ethmoid sinuses. Mild mucosal thickening of the bilateral maxillary sinuses. Mastoid air cells: Clear. Bones: No focal abnormality. Additional comment: None. IMPRESSION: 1. No acute intracranial abnormality. 2. [id number] mucosal thickening of the paranasal sinuses may represent acute sinusitis. Discussed findings with Ms. Mejía and significant other. Medical Records Medical records reviewed: Yes I reviewed the patient's medical records Lab Data Lab results reviewed: Yes I reviewed the patient's lab results Labs: Lab Results 12/02/23 12/02/23 Range/Units 09:33 11:12 WBC 4.95 (4.50-11.00) K/uL RBC 4.97 (4.00-5.20) m/uL Hgb 14.5 (12.0-16.0) gm/dL Hct 44.0 (33.0-51.0) % MCV 89 (80-100) fL MCH 29 (26-34) pg MCHC 33 (32-36) gm/dL RDW Coeff of Tahira 12.5 (11.5-15.5) % Plt Count 286 (140-440) K/uL Neut % (Auto) 58.6 (42.0-72.0) % Lymph % (Auto) 29.1 (20-44) % Meagher % (Auto) 8.3 (0.0-11.0) % Eos % (Auto) 3.2 (0.0-7.0) % Baso % (Auto) 0.8 (0.0-3.0) % Neut # (Auto) 2.90 (1.7-7.0) K/uL Lymph # (Auto) 1.44 (0.90-2.90) K/uL Meagher # (Auto) 0.40 (0.00-0.90) K/UL Eos # (Auto) 0.16 (0.00-0.50) K/uL Baso # (Auto) 0.04 (0.00-0.30) K/uL Abs Immat Gran (auto) 0.00 (0.00-0.30) K/uL Imm/Tot Granulo (auto) 0.0 % Sodium 143 (135-149) mmol/L Potassium 4.2 (3.6-5.1) mmol/L Chloride 111 (96-114) mmol/L Carbon Dioxide 26 (20-32) mmol/L Anion Gap 6 L (7-15) mEq/L BUN 20 (7-30) mg/dL Creatinine 0.8 (0.5-1.5) mg/dL Estimated Creat Clear 40.22 Estimated GFR 78 ml/min Glucose 113 (60-115) mg/dL Calcium 9.9 (8.4-10.6) mg/dL Magnesium 2.3 (1.5-2.6) mg/dL Total Bilirubin 0.7 (0.1-1.5) mg/dL Direct Bilirubin 0.4 (0.0-0.5) mg/dL AST 40 H (12-35) U/L ALT 40 H (4-35) U/L Alkaline Phosphatase 94 (40-150) U/L Troponin I < 0.01 L (0.01-0.04) ng/mL C-Reactive Protein < 0.5 L (0.5-1.0) mg/dL NT-Pro-B Natriuret Pep 116 pg/mL Total Protein 8.0 (6.0-8.3) g/dL Albumin 4.7 (3.3-5.0) g/dL POC Troponin I 0.00 L 0.00 L (0.01-0.04) ng/ml Discharge Plan Discharge Clinical Impression: Headache Patient Disposition: Home w/ Parent or Adult Condition: Improved Additional Instructions: It does appear that you have some combination of tension headache and this jaw pain though I am unsure how exactly they are related. Certainly temporomandibular joint pain can contribute to headaches though it has been difficult to reproduce here. You do however have this history of bruxism and I wonder if you might need to return to that mouth guard at least for a few months. I think it would be a good idea to follow up with your primary care provider to discuss these symptoms as well and consider further evaluation of your heart. See handout on stretches for the upper back that you might consider doing daily . Prescriptions: No Action celecoxib 200 mg capsule 200 mg PO 3XD cyclobenzaprine 10 mg tablet 10 mg PO QPM PRN (Reason: muscle spasm) trazodone 50 mg tablet 25 - 50 mg PO QPM topiramate 25 mg tablet 25 mg PO BID pantoprazole 40 mg tablet,delayed release (DR/EC) 40 mg PO DAILY betamethasone dipropionate 0.05 % ointment topical BID desvenlafaxine succinate 50 mg tablet extended release 24 hr 50 mg PO DAILY Follow Up/Referrals: Dinorah Quiroga DO [Primary Care Provider] - Stand Alone Forms: [employer] Info Instructions
--- NOTE | 2023-12-02 09:26 | CRLHL7_ITS ---
For Patients: As a result of the Century Cures Act, medical imaging exams and procedure reports are released immediately into your electronic medical record. You may view this report before your referring provider. If you have questions, please contact your health care provider. INDICATION: TOBIN, NEAR SYNCOPE, JAW PAIN, NAUSEA TECHNIQUE: CT of the head was performed without IV contrast. COMPARISON: None. FINDINGS: Parenchyma: No acute hemorrhage, infarction, or mass. Mild scattered periventricular white matter hypoattenuation is nonspecific and is favored to represent chronic small vessel ischemic disease. Ventricles and extra-axial spaces: Appropriate for age. Visualized paranasal sinuses: Moderate mucosal thickening of the bilateral ethmoid sinuses. Mild mucosal thickening of the bilateral maxillary sinuses. Mastoid air cells: Clear. Bones: No focal abnormality. Additional comment: None. IMPRESSION: 1. No acute intracranial abnormality. 2. [id number] mucosal thickening of the paranasal sinuses may represent acute sinusitis. Please note that all CT scans at this facility use dose modulation, iterative reconstruction, and/or weight-based dosing when appropriate to reduce radiation dose to as low as reasonably achievable. Dictated by Germán Ram MD @ 12/02/2023 10:11:31 AM (Electronically Signed)
[2023-12-02] MEDS: 0.9 % SODIUM CHLORIDE 1000 ml 1,000 ML IV (09:34)
[2023-12-02 09:44] LABS: Basophils Absolute Auto 0.04 K/uL (0.00-0.30); Basophils Percent Auto 0.8 % (0.0-3.0); Eosinophils Absolute Auto 0.16 K/uL (0.00-0.50); Eosinophils Percent Auto 3.2 % (0.0-7.0); Hemoglobin* 14.5 gm/dL (12.0-16.0); Lymphocytes Absolute Auto 1.44 K/uL (0.90-2.90); Lymphocytes Percent Auto 29.1 % (20-44); Mean Corpuscular HGB Conc 33 gm/dL (32-36); Mean Corpuscular Hemoglobin 29 pg (26-34); Mean Corpuscular Volume 89 fL (80-100); Monocytes Percent Auto 8.3 % (0.0-11.0); Neutrophils Percent Auto 58.6 % (42.0-72.0); Platelet Count* 286 K/uL (140-440); RDW Coefficient of Variation % 12.5 % (11.5-15.5); Red Blood Count 4.97 m/uL (4.00-5.20); White Blood Count* 4.95 K/uL (4.50-11.00)
[2023-12-02 09:49] LABS: Slide Review Reflex No
[2023-12-02 10:02] LABS: Albumin* 4.7 g/dL (3.3-5.0)
[2023-12-02 10:03] LABS: Chloride* 111 mmol/L (96-114); Sodium* 143 mmol/L (135-149)
[2023-12-02 10:04] LABS: Potassium* 4.2 mmol/L (3.6-5.1)
[2023-12-02 10:05] LABS: Bilirubin Direct* 0.4 mg/dL (0.0-0.5); Bilirubin Total* 0.7 mg/dL (0.1-1.5)
[2023-12-02 10:06] LABS: Alanine Aminotransferase* 40 U/L (4-35); Alkaline Phosphatase* 94 U/L (40-150); Aspartate Amino Transferase* 40 U/L (12-35); Creatinine* 0.8 mg/dL (0.5-1.5); Est. Creatinine Clearance* 40.22; Estimated Glomerular Filt Rate 78 ml/min; Magnesium* 2.3 mg/dL (1.5-2.6)
[2023-12-02 10:07] LABS: Anion Gap 6 mEq/L (7-15); Blood Urea Nitrogen* 20 mg/dL (7-30); Calcium* 9.9 mg/dL (8.4-10.6); Carbon Dioxide* 26 mmol/L (20-32); Glucose* 113 mg/dL (60-115)
[2023-12-02 10:14] LABS: C Reactive Protein* < 0.5 mg/dL (0.5-1.0)
[2023-12-02 10:17] LABS: NT Pro B Type NatriureticPept* 116 pg/mL
[2023-12-02 10:19] LABS: Troponin I* < 0.01 ng/mL (0.01-0.04)
[2023-12-02] MEDS: KETOROLAC 15 MG/ML inj IVP (10:35)
[2023-12-02] MEDS: ONDANSETRON 2 MG/ML inj 4 MG IVP (10:37)
== END 2023-12-02 12:31 | disposition home or self-care (01) ==
PROVIDERS: Emergency Provider Family Medicine; PCP Family Medicine
DX: R51.9 Headache, unspecified (principal)
CPT/HCPCS: 36415; 70450; 80048; 80076; 83735; 83880; 84484; 85025; 86140; 93005; 94761; 96374; 96375; 99284; 99285; J1885; J2405; J7030